=== PATIENT | male | born 1990 | race African-American/Black ===

== ENCOUNTER 2020-08-21 10:16 | Emergency (ER) | payer OTHER, MEDICAID ==
[~2020-08-21] VITALS: Ht 172.7 cm; Wt 72.5 kg
[2020-08-21 10:20] VITALS: BP 128/74
--- NOTE | 2020-08-21 11:14 | NUR ---
Patient given discharge instructions and they have confirmed that they understand the instructions. Patient ambulatory with steady gait.
== END 2020-08-21 11:15 | disposition home or self-care (01) ==
LOC: ED 11:09
DX: H00.011 Hordeolum externum right upper eyelid (principal)
CPT/HCPCS: 99283

== ENCOUNTER 2020-10-03 05:08 | Emergency (ER) | payer OTHER, MEDICAID ==
[~2020-10-03] VITALS: Ht 175.3 cm; Wt 68.8 kg
--- NOTE | 2020-10-03 05:26 | NUR ---
PT PRESENTS WITH CHEST PAIN IN THE CENTER OF CHEST AND STATES THAT IT RADIATES OUT ACROSS CHEST. PT IS HOOKED TO ALL MONITORS AND IS IN GOWN, RESTING ON GURNEY
[2020-10-03] MEDS ORDERED: ASPIRIN 81 MG TABLET CHEW ONE ×2 (05:45→05:49)
--- NOTE | 2020-10-03 05:46 | NUR ---
MEDS GIVE, EKG DONE, PT RESTING COMFORTABLY ON GURNEY
[2020-10-03] MEDS ORDERED: ASPIRIN 81 MG TABLET CHEW PO ONE (06:00)
[2020-10-03 06:05] VITALS: BP 122/84
[2020-10-03 06:23] LABS: BASOPHILS % (AUTO) 1 % (0-1); EOSINOPHILS % (AUTO) 5 % (1-7); LYMPHOCYTES % (AUTO) 27 % (22-44); MD NO; MEAN CORPUSCULAR HEMOGLOBIN 30.1 pg (27.5-34.5); MEAN PLATELET VOLUME 9.2 fL (7.4-10.4); MONOCYTES % (AUTO) 11 % (2-9); NEUTROPHILS % (AUTO) 56 % (42-75); PLATELET COUNT 175 x10^3/uL (130-400); RED BLOOD COUNT 5.24 x10^6/uL (4.38-5.82); RED CELL DISTRIBUTION WIDTH 13.9 % (9.4-14.8)
[2020-10-03 06:34] LABS: ALANINE AMINOTRANSFERASE 26 U/L (12-78); ALBUMIN 3.7 g/dL (3.4-5.0); ANION GAP 6 mmol/L (5-15); CALCIUM 8.5 mg/dL (8.5-10.1); CHLORIDE 108 mmol/L (98-107); CREATININE 0.95 mg/dL (0.7-1.3)
[2020-10-03 06:39] LABS: ALKALINE PHOSPHATASE 61 U/L (45-117); BILIRUBIN,TOTAL 0.8 mg/dL (0.2-1.0); TOTAL PROTEIN 7.3 g/dL (6.4-8.2); TROPONIN I < 0.015 ng/mL (0.000-0.045)
--- NOTE | 2020-10-03 06:58 | NUR ---
REPORT FROM [facility]. ASSUMING CARE OF PT. PT UP FOR RECHECK.
--- NOTE | 2020-10-03 07:08 | NUR ---
PT LEFT WITHOUT NOTIFIYING STAFF AND WITHOUT DC PAPERWORK AND INSTRUCTIONS. DR. KENYON NOTIFED.
== END 2020-10-03 07:13 | disposition home or self-care (01) ==
LOC: ED 06:27
DX: R07.89 Other chest pain (principal); J45.909 Unspecified asthma, uncomplicated
CPT/HCPCS: 36415; 71045; 80053; 83690; 84484; 85025; 93005; 99285